=== PATIENT | female | born 1950 ===

== ENCOUNTER 2016-07-13 21:18 | Emergency (ER) | payer MEDICARE, MEDICAID ==
[~2016-07-13] VITALS: Ht 165.1 cm; Wt 69.5 kg
--- OUTSIDE RECORDS SUMMARY | 2016-07-13 21:23 | XMS REPORT | Summary of Care ---
Author Author Tavares Jimenez M.D. Organization Unknown Address [address], [place] [id number] Phone Unavailable Care Team Providers Care Rn Recovery Name Role Phone Tavares Jimenez M.D. 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 Refills: 0 Tavares Jimenez M.D. Started 23-Sep-2015 ActiveMetFORMIN HCl - 500 MG Oral Tablet TAKE 1 TABLET TWICE DAILY WITH MEALS. Refills: 0 Tavares Jimenez M.D. Started 23-Sep-2015 ActiveLipitor 40 MG Oral Tablet TAKE 1 TABLET AT BEDTIME. Refills: 0 Tavares Jimenez M.D. Started 23-Sep-2015 ActiveMulti Vitamin Daily Oral Tablet TAKE 1 TABLET DAILY. Refills: 0 Tavares Jimenez M.D. Started 23-Sep-2015 ActiveAspirin 81 MG TABS TAKE 1 TABLET DAILY. Refills: 0 Tavares Jimenez M.D. Started 23-Sep-2015 ActiveNitroglycerin 400 MCG/SPRAY Translingual Aerosol Solution Refills: 0 Tavares Jimenez M.D. Started 23-Sep-2015 Active Allergies and Adverse Reactions Name Dates Details No Known Drug Allergies Status: Active Past Medical History Name Dates Details History of angina pectoris (V12.59, Z86.79) Status: Resolved History of hyperlipidemia (V12.29, Z86.39) Status: Resolved History of hypothyroidism (V12.29, Z86.39) Status: Resolved History of mammogram (V15.89, Z92.89) Status: Resolved History of osteoarthritis (V13.4, Z87.39) Status: Resolved History of Raynaud disease (443.0, I73.00) Status: Resolved History of reflex sympathetic dystrophy (V12.49, Z86.69) Status: Resolved History of type 2 diabetes mellitus (V12.29, Z86.39) Status: Resolved Procedures Procedure Dates Details History of Appendectomy History of Tubal Ligation Procedures not documented Immunization Name Dates Details Immunizations not documented Family History aunt Name Dates Details Family history of Diabetes type 2, controlled (250.00, E11.9) Status: Active Mother Name Dates Details Family history of congestive heart failure (V17.49, Z82.49) Status: Active Family history of Diabetes type 2, controlled (250.00, E11.9) Status: Active Social History Smoking StatusUnknown if ever smoked Vital Signs Date Test Result Details No Known Vitals to report Results Date Description Value Details 14-Nov-2015 14:39 Quant Microalbumin 1106 Comments: Fastin hours MICROALBUMIN, URINE 6.5 mg/L (Better) Range: <20.1 14:43 LIPID PROFILE 1184 Comments: Fastin hours CHOLESTEROL 164 mg/dL (Better) Range: <200 TRIGLYCERIDES 100 mg/dL (Better) Range: 30-200 HDL Cholesterol 59 mg/dL (Better) Range: >39 NON HDL CHOLESTEROL 105 (Better) CARDIAC RSK FACTOR 2.8 units (Below low threshold) Range: 4.4-5.0 LDL - CALCULATED 85 mg/dL (Better) Range: 0-130 16:55 HEMOGLOBIN A1C 3507 Comments: Fastin hours Hemoglobin A1C 6.0 % (Better) ESTIMATED AVG. GLUCOSE 126 (Better) Plan of Care Planned Observations Name Dates Details Planned Goals not documented Goal Planned Encounters Appointment; Provider: Tavares Jimenez On 17-Nov-2015 13:30 Instructions Instructions not documented Encounters No Encounter data documented Encounter Diagnosis: Problem not documented On 16-Nov-2015
--- NOTE | 2016-07-13 21:30 | NUR ---
VS: 0 137/68 P 63 2145: 146/74 P61 2200: 140/70 P61 2215: 128/75 P57
[2016-07-13] MEDS ORDERED: ONDANSETRON 4 MG (ZOFRAN) ORAL DISSOLVE TAB PO ONE (21:45)
[2016-07-13] MEDS ORDERED: NITR12SP5 TL (22:01)
[2016-07-13] MEDS ORDERED: METF500T4 PO (22:01)
[2016-07-13] MEDS ORDERED: LEVO88TA4 PO (22:01)
[2016-07-13] MEDS ORDERED: ASPI-860 PO (22:02)
[2016-07-13 22:10] LABS: BASOPHILS % (AUTO) 1 % (0-2); EOSINOPHILS # (AUTO) 0.2 10^3uL; EOSINOPHILS % (AUTO) 3 % (0-4); LYMPHOCYTES # (AUTO) 3.1 X10^3; MEAN CORPUSCULAR HEMOGLOBIN 30.6 PG (26.0-34.0); MEAN CORPUSCULAR HGB CONC 34.4 g/dL (31.0-37.0); MEAN CORPUSCULAR VOLUME 89 FL (80-100); MEAN PLATELET VOLUME 10.1 FL (6.0-9.5); MONOCYTES # (AUTO) 0.8 X10^3; MONOCYTES % (AUTO) 10 % (3-11); NEUTROPHILS # (AUTO) 4.4 X10^3; NEUTROPHILS % (AUTO) 51 % (51-67); PLATELET COUNT 407 10^3uL (150-450); WHITE BLOOD COUNT 8.62 10^3uL (4.0-11.0)
[2016-07-13 22:48] VITALS: BP 101/63
== END 2016-07-13 22:49 | disposition home or self-care (01) ==
LOC: ED 21:20
DX: R04.0 Epistaxis (principal)
CPT/HCPCS: 36415; 85025; 99283; A9270; 99282